=== PATIENT | female | born 1995 | race Two or more races ===

== ENCOUNTER 2017-11-20 19:45 | Inpatient (IN) ==
[2017-11-20] MEDS ORDERED: ONDANSETRON 4 MG/2 ML VIAL IVP ONE (20:15)
[2017-11-20] MEDS ORDERED: MORPHINE SULFATE 4 MG/1 ML IVP ONE ×2 (20:15→21:40)
[2017-11-20] MEDS ORDERED: LORazepam 2 MG/1 ML VIAL IVP ONE (20:17)
[2017-11-20] MEDS: Sodium Chloride 0.9% 1,000 ML PRIMARY IV ONE ×2 (20:25→21:50)
[2017-11-20 20:36] LABS: BASOPHILS # (AUTO) 0.05 10*3/UL; BASOPHILS % (AUTO) 0.2 % (0-1); EOSINOPHILS # (AUTO) 0 10*3/UL; EOSINOPHILS % (AUTO) 0 % (0-8); Hematocrit [HCT] 43.4 % (37.0-47.0); Hemoglobin [HGB] 15.7 g/dL (12.0-16.0); LYMPHOCYTES # (AUTO) 1.38 10*3/uL; MEAN CORPUSCULAR HEMOGLOBIN 31.3 PG (27-31); MEAN CORPUSCULAR HGB CONC 36.2 g/dL (33-37); MEAN CORPUSCULAR VOLUME 86.6 FL (81-99); MEAN PLATELET VOLUME 10.2 FL (7.4-12.2); MONOCYTES # (AUTO) 0.73 10*3/UL (0.3-0.8); MONOCYTES % (AUTO) 3.4 % (5-15); NEUTROPHILS # (AUTO) 19.09 10*3/UL; NEUTROPHILS % (AUTO) 89.5 % (50-80); RED BLOOD COUNT 5.01 10^6/uL (4.20-5.40)
[2017-11-20 20:46] LABS: BLOOD UREA NITROGEN 15 mg/dL (7-22); SERUM ALBUMIN 5.1 g/dL (3.5-4.8)
[2017-11-20 20:48] LABS: VENOUS PH 7.12 (7.32-7.42)
[2017-11-20 21:02] LABS: PLATELET MORPHOLOGY COMMENT NORMAL MORPHOLOGY (NORM); RBC MORPHOLOGY COMMENT NORMAL MORPHOLOGY (NORM); WBC MORPHOLOGY COMMENT SEE COMMENTS (NORM)
[2017-11-20] MEDS ORDERED: DEXTROSE 50%-WATER SYRINGE 50 ML SYRINGE IVP PRN ×3 (21:27→22:16)
[2017-11-20] MEDS ORDERED: Insulin Regular Inj 100 UNIT in Sodium Chloride 0.9% 99 ML IV ONE ×3 (21:27→22:16)
[2017-11-20] MEDS ORDERED: Glucagon Inj Vial 1 MG/ML VIAL IM PRN ×3 (21:27→22:16)
[2017-11-20] MEDS ORDERED: DEXTROSE 31 GM GEL PO PRN ×3 (21:27→22:16)
[2017-11-20] MEDS ORDERED: INSULIN REGULAR, HUMAN 100 UNIT/1 ML - 3 ML IV ONE ×2 (21:36→21:44)
[2017-11-20] MEDS ORDERED: RHO(D) IMMUNE GLOBULIN 1500 UNIT(300 mcg)SYRIN IM PRN (21:45)
[2017-11-20] MEDS ORDERED: Sodium Chloride 0.9% 100 ML IV ONE (22:19)
[2017-11-20] MEDS ORDERED: ONDANSETRON 4 MG/2 ML VIAL IVP PRN (23:29)
[2017-11-20] MEDS ORDERED: Sodium Chloride 0.9% 1,000 ML PRIMARY IV SCH (23:30)
[2017-11-20 23:39] LABS: BILIRUBIN,URINE NEGATIVE (NEG); CLARITY,URINE CLEAR (CLEAR); COLOR,URINE YELLOW (Y); GLUCOSE, URINE (UA) NEGATIVE (NEG); OCCULT BLOOD,URINE SMALL (NEG); PROTEIN,URINE 30 mg/dl (NEG); UROBILINOGEN,URINE 0.2 EU/dL (0.2)
[2017-11-20 23:42] LABS: RBC,URINE 0-1 /hpf; SQUAMOUS EPITHELIAL CELL,UR RARE; URINE SAMPLE TYPE CATH SPECIMEN; URINE SPECIFIC GRAVITY - MAN 1.025
[2017-11-20 23:43] LABS: URINE CRYSTALS FEW
[2017-11-20 23:49] LABS: AMPHETAMINE SCREEN POSITIVE (NEG); CANNABINOID SCREEN,URINE NEGATIVE (NEG); COCAINE SCREEN NEGATIVE (NEG); METHADONE URINE SCREEN POSITIVE (NEG); METHAMPHETAMINES SCREEN,URINE NEGATIVE (NEG); OPIATE SCREEN,URINE POSITIVE (NEG)
--- NOTE | 2017-11-20 23:51 | PDOC ---
General Adult HPI - General Chief Complaint: Abdomen Pain Stated Complaint: vomiting, vaginal bleeding, lower abdominal pain Date Seen by Provider: 11/20/17 Time Seen by Provider: 19:55 Source: POSITIVE: Patient, Other (Boyfriend) Exam Limitations: POSITIVE: No limitations Nurse's Notes Reviewed & Considered: Yes - History of Present Illness Initial Comment: The patient is a 22-year-old female who presents to the emergency room with a chief complaint of nausea and vomiting for the past 12 hours. She furthermore states that she thinks she is around 8 weeks and has had some lower abdominal discomfort and a scant amount of vaginal bleeding tonight. Patient has a history of type I diabetes mellitus diagnosed when she was 13 years old. She is on insulin, 17 units of Lantus daily and NovoLog on a sliding scale. She also has a history of opiate addiction and is being treated for this with methadone. She states that because of her vomiting she's not been able to take her medications. She and her boyfriend lives in [place] and were in [place] attending a concert, and they're on their way back to [place]. Patient states that she had diabetic ketoacidosis this past Apriil. 2 para 0 aborta 1. Patient and her significant other report that she has a history of a large ovarian cyst, which is scheduled for surgical removal later on this month. She states she is also scheduled for surgical termination of her in [place] later on this month. Have you received a tetanus shot in the past 10 years?: Unknown Body Location Affected: REPORTS: Abdomen Timing: REPORTS: Gradual, Getting Worse Duration: <24 hours Severity: Moderate Quality: REPORTS: "Pain" (Lower abdominal pain) Context: REPORTS: Other (As above) Modifying Factors: improves with: Vomiting Similar Symptoms Previously: Yes (with previous episodes of diabetic ketoacidosis) Recent Care Received: REPORTS: Recently Seen (As above) Any Prior Injuries Related to Current Complaint?: No - Patient Allergies Allergies/Adverse Reactions: Allergies 3 Allergy/AdvReac Type Severity Reaction Status Date / Time No Known Allergies Allergy Verified 11/20/17 21:00 Past Medical History - heen HEENT History: Denies History Cardiovascular History: Denies History Respiratory History: Denies History Gastrointestinal History: Denies History Genitourinary History: Denies History Endocrine History: Type 1 Diabetes Musculoskeletal History: Arthritis Prosthesis or Implant: No Neurological History: Denies History Blood Disorders: Denies History Psychiatric History: Denies History History of Sexually Transmitted Diseases: No LMP: 3 months prior Obstetrical History: Other (please comment) Additional Obstetrical History: ELECTIVE 2009 : 2 Para: 0 Cancer History: Denies History In Past Year Been Physically Harmed or Verbally Threatened: No History of MDRO: No History of Other Communicable Diseases: No Tobacco Use: Current Every Day Smoker Type of alcohol normally used: Beer In the Past 12 Months, Have Used or Abuse Any Substance: None Previous Hospitalizations: Yes (diabetic ketoacidosis) Type / Date of Surgery: ADNOIDECTOMY Anesthesia Reactions: No Malignant Hyperthermia: No Family History of Malignant Hyperthermia: No Significant Family History: Cancer Additional Family History: BREAST. COLON. LUNGS Past Medical History Reviewed: Reviewed - No Changes ROS - Limitations ROS Limitations: No Limitations Constitution: REPORTS: Weakness Cardiovascular: REPORTS: Denies Cardiac Symptoms Respiratory: REPORTS: Denies Resp Symptoms Neurological: REPORTS: Denies Neuro Symptoms Gastrointestinal: REPORTS: Abdominal Pain, Nausea, Vomitting Endocrine: REPORTS: Polyuria Musculoskeletal: REPORTS: Denies MS Symptoms Genitourinary: REPORTS: Other (Scant vaginal bleeding today) Eyes: REPORTS: Denies Symptoms ENT: REPORTS: Denies Symptoms Skin: REPORTS: Denies Skin Symptoms Lympathic: REPORTS: Denies Lympathic Symptoms Immunologic: POSITIVE: Denies Symptoms Psychiatric: POSITIVE: Anxiety General Adult Exam - General Appearance General Appearance: POSITIVE: Alert, Cooperative, No Evidence of Trauma, Moderate Distress (Due to nausea, tachypnea, abdominal discomfort). NEGATIVE: No Acute Distress - HEENT HEENT: POSITIVE: Head Inspection Nml, Eyes Inspection Nml, Ears Inspection Nml, Nose Inspection Nml, Oral/Dental Inspect. Nml, Pharynx Inspect. Nml, PERRL, EOMI - Pupils Pupil Size: 3 mm: Bilateral (PERRLA) - Neck Neck: POSITIVE: Normal Inspection, Thyroid Normal - Respiratory Respiratory: POSITIVE: Other (Tachypnea with respiratory rate of around 20/m) - Cardiovascular Cardiovascular: POSITIVE: Regular Rate & Rhythm, No Murmur, No Gallop, PMI Normal, Tachycardia (95/m) Peripheral Pulses: Radial (R): 2+, Radial (L): 2+ - Abdomen Abdomen: Soft: (All Quadrants), Normal Bowel Sounds: (All Quadrants), Denies Tenderness: (RUQ), (LUQ), No Splenomegaly: (All Quadrants), No Hepatomegaly: ( All Quadrants), No Guarding: (All Quadrants), No Rebound: (All Quadrants), No Palpable Pulse: (All Quadrants), No Palpabale Mass: (All Quadrants), No Distention: (All Quadrants), No Rigidity: (All Quadrants), Tenderness Noted: ( RLQ), (LLQ) Additional Abdominal Details: Abdominal examination shows bowel sounds to be active. There is some poorly localized discomfort on direct palpation in the lower abdomen, without masses, organomegaly or rebound. Pelvic examination shows external genitalia to be normal. There is just a little bit of blood in the external os. Os is closed. Uterus is not grossly tender, but is somewhat enlarged. Probable right adnexal mass - Back Back: POSITIVE: Normal Inspection - Skin Skin: POSITIVE: Normal Color, Warm, Dry, No Rash - Extremities Extremity: Non-Tender: (All Extremities), Normal ROM: (All Extremities), Normal Inspection: (All Extremities) - Neurological / Psychological Neurological: POSITIVE: Affect Apporpriate, Oriented X3, executive officer special warfare team Normal As Tested, Motor Normal, Sensation Normal Images - Complete Complete: 1 - Area of described discomfort General Adult Progress - Results Reviewed by me Xrays/CTs/US Reviewed by me: Yes Discussed with Radiologist: Yes Radiology Findings: Obstetrical ultrasound discussed with the electronics instructor. Box Printing Machine Operator reports no heart rate. There is a 9 cm cyst probably arising from the right ovary with probably some hydronephrosis. Abdominal ultrasound negative except as above Lab Results Reviewed by Me: Yes (venous blood gas shows pH 7.12, quantitative test 70,931, blood t) CBC and BMP: 11/20/17 20:25 11/20/17 20:25 - Patient's Progress Pain Medication Addressed: POSITIVE: Yes (Patient medicated with morphine sulfate for her pain) School/Work Release Addressed: POSITIVE: Not Applicable Re-Examine Time: 21:20 Re-Examine Comment: Patient feeling somewhat better after hydration with approximately 1.5 L of normal saline and after insulin bolus 0.1 units per kilogram followed by constant infusion of regular insulin at 0.1 units per kilogram per hour. Re-Examine Time:: 23:10 Re-Examine Comment: Results of ultrasound discussed with patient. Diagnosis of diabetic ketoacidosis and probable demise and large right ovarian cyst discussed with patient and her significant other. Case discussed with Dr. Garcia at 0, who declines to admit the patient because of the obstetrical components to it. He states that he will consult with the assembly repairer with regard to patient's diabetic ketoacidosis. Case discussed with Dr. Alvarez, who was on-call for COMFORT ADVISOR, at 0 who admitted patient with consultation to hospitalist. Patient's blood type is A- and RhoGAM therefore given. Status: POSITIVE: Improved, Re-Examined Antibiotics Given: No - Consult Consult (If Yes, Name of Consulting MD & Time Called): Yes (Dr. Garcia, [id number]; Dr. Alvarez [id number]) Consulting MD will see pt:: POSITIVE: [facility] [place] Counseled: POSITIVE: Patient, Family (Boyfriend), RE: Lab Results, RE: Radiology Results, RE: DX, RE: Need for F/U Patient Care Time - Estimated PCT Patient Care Time (In Minutes): 70 Vital Signs - Recent Vital Signs Vital Signs: Vital Signs (Last 8 hours) Temp Pulse Resp BP Pulse Ox 11/20/17 21:00 92 20 100 11/20/17 19:45 98.0 F 95 20 116/50 100 - VS Reviewed Vital Signs Reviewed: Yes Discharge Clinical Impression: Abdominal pain, Diabetic ketoacidosis, Nausea and vomiting, Discharge Disposition: Admit to Inpatient Condition: Good Follow Up With: NONE,NONE [Primary Care Provider] - Date Decision to Admit to Inpatient: 11/20/17 Time Decision to Admit to Inpatient: 23:00
[2017-11-21] MEDS ORDERED: DEXTROSE 31 GM GEL PO PRN ×3 (00:18→16:46)
[2017-11-21] MEDS ORDERED: ONDANSETRON 4 MG/2 ML VIAL IVP PRN (00:18)
[2017-11-21] MEDS ORDERED: Sodium Chloride 0.9% 1,000 ML PRIMARY IV ONE ×2 (00:18→15:29)
[2017-11-21] MEDS ORDERED: DEXTROSE 50%-WATER SYRINGE 50 ML SYRINGE IVP PRN ×3 (00:18→16:46)
[2017-11-21] MEDS ORDERED: LIDOCAINE W/ SODIUM BICARB 0.5 ML SYR SUBD PRN (00:18)
[2017-11-21] MEDS ORDERED: Sodium Chloride 0.9% 1,000 ML PRIMARY IV SCH (00:18)
[2017-11-21] MEDS ORDERED: Glucagon Inj Vial 1 MG/ML VIAL IM PRN ×3 (00:18→16:46)
[2017-11-21] MEDS ORDERED: Insulin Regular Inj 100 UNIT in Sodium Chloride 0.9% 99 ML IV SCH ×2 (00:18→11:30)
[2017-11-21] MEDS: Insulin Regular Inj 100 UNIT in Sodium Chloride 0.9% 99 ML IV SCH ×2 (00:30→01:39)
--- NOTE | 2017-11-21 00:35 | DI ---
EXAM: US After First Trimester, Transabdominal CLINICAL HISTORY: ITS.REASON vaginal bleeding;; two months Physician Notes: Tech Comments: TECHNIQUE: Real-time transabdominal obstetrical ultrasound of the maternal pelvis and a second or third trimester with image documentation. COMPARISON: No relevant prior studies available. FINDINGS: Single intrauterine gestation with crown-rump length corresponding to a gestational age of 9 weeks 6 days. No heart tones are present. 9 cm right adnexal cyst with dependent debris, consistent with a complicated cyst. No free fluid. IMPRESSION: Large complicated right adnexal cyst. Intrauterine demise. Critical Value [employer] 11/21/17 00:40 Verify Receipt Verified receipt with BEBA Downing on 11/21 00:39 (-06:00)
--- NOTE | 2017-11-21 00:36 | DI ---
EXAM: US Abdomen Complete CLINICAL HISTORY: ITS.REASON abdominal pain Physician Notes: Tech Comments: TECHNIQUE: Real-time ultrasound of the abdomen (complete) with image documentation. COMPARISON: No relevant prior studies available. FINDINGS: Liver: No acute or suspicious findings. No mass. No intrahepatic bile duct dilation. Gallbladder: No acute or suspicious findings. No gallstones. Common bile duct: Unremarkable as visualized. No stones. No dilation. Pancreas: Unremarkable as visualized. Kidneys: Moderate right hydronephrosis without intrarenal stones. Spleen: No acute or suspicious findings. No splenomegaly. Aorta: No acute or suspicious findings. No aneurysm. Inferior vena cava: No acute or suspicious findings. IMPRESSION: Moderate right hydronephrosis without intrarenal stones.
--- NOTE | 2017-11-21 00:44 | PDOC ---
HPI - History of Present Illness Date of Service: 11/21/17 Time of Service: 00:39 Chief Complaint: Nausea and vomiting History of Present Illness: This very pleasant 22-year-old female who resides in [place] who is down here for a concert with her significant other who presented today with nausea and vomiting and abdominal pain. She is actually known to be at 9 weeks . She had an ultrasound done in the emergency room that showed a demise. She was actually on schedule for terminating the with a planned to be done in [place]. She also suffers from type I diabetes and has had that since she was 12 years old. She is on methadone as well in a methadone clinic in [place]. She is on Dexedrine and due to the sedation that methadone can cause at times. Be that as it may, the patient developed nausea and vomiting and abdominal pain and was at a concert in the [facility] and had a couple of beers and was dehydrated and sunburned. She felt bad through the whole day. The patient and her significant other had car problems and her symptoms got bad enough that she decided to stop. For further evaluation. She' s found to be in DKA. She was given fluids, ultrasound was done which showed a demise, she had a pelvic exam done by the emergency room physician and I' m told she had minimal bleeding at the cervical os. She has a known ovarian cyst which apparently was known about in [place] per the patient's history and per her significant other's history. The plan was to do without surgically in about 5 weeks or so. She is currently quite tired, complains of a headache as well, and chills. She has no other infectious symptoms. She has had DKA in the past and felt that she was having the symptoms of it which is why she came in for evaluation. She has artery had the Rhogam shot. Past Medical History Medical History: 1. Diabetes mellitus type I. 2. Recent intrauterine now with no heart tones at about 9 weeks. The patient had plans to terminate the and had apparently had this scheduled in [place]. 3. Known ovarian cyst at about 10 cm. 4. Methadone dependence. 5. Tobacco abuse. 6. History of drug abuse. 7. Within the last 2 months, the patient had what sounds like pyelonephritis with bacteremia but details are not available for review. Surgical History: 1. Prior D&C. 2. Adenoids removed Pertinent Family History: No family history of diabetes. Past Social History: Has a significant other. Lives in [place]. Is on disability there. Tobacco Use: Current Every Day Smoker Do you dip or chew tobacco: No In the Past 12 Months, Have Used or Abuse Any of the Following Substance: Other (please comment) (Patient admitted to me that she shot up her Dexedrine recently in the past week.) Alcohol Use: Occasionally Medication / Allergies Home Medications: Home Medications 3 Medication Instructions Recorded Confirmed Type Dextroamphetamine Sulfate 5 mg PO 11/21/17 History [Dexedrine] Methadone HCl [Methadone Intensol] 10 mg PO 11/21/17 History Allergies/Adverse Reactions: Allergies 3 Allergy/AdvReac Type Severity Reaction Status Date / Time No Known Allergies Allergy Verified 11/20/17 21:00 Review of Systems - Review of Systems All Systems: Reviewed & No Additional Complaints Except as Stated (I did a 12 point review systems and is negative other than that discussed in history present illness and that noted below.) - Constitutional Constitutional: REPORTS: Fever / Chills - Respiratory Respiratory: REPORTS: Negative System Review - Cardiovascular Cardiovascular: REPORTS: Negative System Review - Gastrointestinal Gastrointestinal / Abdominal: REPORTS: Nausea, Vomiting, Abdominal Pain - Gynecological Gynecological: REPORTS: Other (Patient denied any pelvic pain with examination. She had this done in the emergency room. Please see the emergency room physician's notes regarding the pelvic examination. Eyes any bleeding at this time.) - Neurological Neurologic: REPORTS: Headache Exam - Vitals Vital Signs: Vital Signs Temperature 98.0 F Temperature Source Temporal Artery Scan Pulse Rate [Pulse Oximeter 92 Left] Respiratory Rate 20 Blood Pressure [Left Arm] 116/50 Pulse Ox 100 Oxygen Delivery Method Room Air - General General Appearance: No Acute Distress, Cooperative - Head Head Exam: Normal Inspection, Normocephalic, Atraumatic - Eye Eye Exam: POSITIVE: No Scleral Icterus - ENT ENT Exam: POSITIVE: Mucous Membranes Dry - Neck Neck Exam: Normal Inspection, No Tenderness, No Lymphadenopathy, No Thyromegaly , JVP is not Raised - Respiratory Respiratory Exam: POSITIVE: Clear to Auscultation - Bilaterally, Breathing Non Labored, Normal to Percussion and Palpation - Cardiovascular Cardiovascular Exam: POSITIVE: RRR, No Murmur, No Clicks, No Gallops, No Rubs, No JVD - GI/Abdominal GI/Abdominal Exam: POSITIVE: Normal Bowel Sounds, Non Tender, Distended (Mild distention and tympanic to percussion, but normal tones and otherwise nontender to palpation) - Rectal Rectal Exam: POSITIVE: Deferred - External Exam: POSITIVE: Deferred Exam: POSITIVE: Deferred - Extremities Extremities Exam: POSITIVE: No Clubbing Present, No Edema Present, No Cyanosis Present - Back Back Exam: POSITIVE: No CVA Tenderness - Neurological Neurological Exam: POSITIVE: Alert, Oriented x 3, Normal Gait, No Facial Droop, Speech Intact / Clear, Moves All Extremities Equally - Integumentary Integumentary Exam: POSITIVE: Warm, Dry, Intact - Central Line Examination Central Line Present on Admission: No Results - Labs CBC and BMP: 11/20/17 20:25 11/20/17 20:25 Additional Lab Results: Laboratory Results 11/20/17 11/20/17 11/20/17 Range/Units 20:25 20:25 20:25 WBC 21.33 H (4.8-10.8) 10^3/uL RBC 5.01 (4.20-5.40) 10^6/uL Hgb 15.7 (12.0-16.0) g/dL Hct 43.4 (37.0-47.0) % MCV 86.6 (81-99) FL MCH 31.3 H (27-31) PG MCHC 36.2 (33-37) g/dL RDW Std Deviation 37.7 L (39-50) fL RDW Coeff of Denisa 12.1 (11.5-14.5) % Plt Count 377 H (140-350) 10*3/uL MPV 10.2 (7.4-12.2) FL Immature Gran % (Auto) 0.4 (0-5) % Neut % (Auto) 89.5 H (50-80) % Lymph % (Auto) 6.5 L (10-50) % [place] % (Auto) 3.4 L (5-15) % Eos % (Auto) 0 (0-8) % Baso % (Auto) 0.2 (0-1) % Immature Gran # (Auto) 0.08 10*3/UL Neut # (Auto) 19.09 10*3/UL Lymph # (Auto) 1.38 10*3/uL [place] # (Auto) 0.73 (0.3-0.8) 10*3/UL Eos # (Auto) 0 10*3/UL Baso # (Auto) 0.05 10*3/UL WBC Morphology Comment See comments (NORM) Plt Morphology Comment Normal morphology (NORM) RBC Morph Comment Normal morphology (NORM) VBG pH (7.32-7.42) VBG pCO2 (45-55) mmHg VBG HCO3 (22-26) mmol/L VBG Base Excess (-2-2) MMOL/L Sodium 131 L (135-145) meq/L Potassium 5.4 H (3.8-5.2) meq/L Chloride 96 L (98-112) meq/L Carbon Dioxide 7 L (23-33) meq/L Anion Gap 28 H (5-20) BUN 15 (7-22) mg/dL Creatinine 0.6 (0.50-1.20) mg/dL Estimated GFR > 60 (>60 ml/min/1.73m(2)) BUN/Creatinine Ratio 25.00 H (6-20) Glucose 418 H* (78-110) mg/dL Calculated Osmolality 290.0 (267-292) mOsm/kg Lactic Acid 2.2 H (0.70-2.10) MMOL/L Calcium 9.6 (8.7-10.7) mg/dL Magnesium 1.8 (1.6-2.4) mg/dL Total Bilirubin 1.5 H (0.3-1.2) mg/dL AST 30 (8-39) IU/L ALT 37 (9-52) IU/L Alkaline Phosphatase 87 (38-126) IU/L Total Protein 8.4 H (6.1-8.0) g/dL Albumin 5.1 H (3.5-4.8) g/dL Globulin 3.3 (2.50-4.10) g/dL Albumin/Globulin Ratio 1.50 (1.3-2.0) mg/g Serum HCG, Qual HCG, Quant mIU/ML Ur Collection Type Urine Color (Y) Urine Clarity (CLEAR) Urine pH (5.0-8.5) Ur Specific [place] (1.005-1.030) U Specif Grav (Refrac) Urine Protein (NEG) mg/dl Urine Glucose (UA) (NEG) mg/dL Urine Ketones (NEG) Urine Occult Blood (NEG) Urine Nitrate (NEG) Urine Bilirubin (NEG) Urine Urobilinogen (0.2) EU/dL Ur Leukocyte Esterase (NEG) Urine RBC (NONE) /hpf Urine WBC (NONE) Ur Squamous Epith Cells (NONE) Ur Renal Epithelial Cell (NONE) Urine Crystals Urine Bacteria (NONE) Urine Casts (NONE) Urine Mucus (NONE) Urine Trichomonas (NONE) Urine Yeast (NONE) Ur Culture Indicated? Urine Opiates Screen (NEG) Ur Buprenorphine (NEG) Ur Oxycodone Screen (NEG) Urine Methadone Screen (NEG) Ur Propoxyphene Screen (NEG) Barbiturate Screen (NEG) U Tricyclic Antidepress (NEG) Phencyclidine Screen (NEG) Amphetamines Screen (NEG) U Methamphetamines Scrn (NEG) Benzodiazepines Screen (NEG) Cocaine Screen (NEG) U Marijuana (THC) Screen (NEG) Blood Type Antibody Screen 11/20/17 11/20/17 11/20/17 Range/Units 20:25 20:25 20:40 WBC (4.8-10.8) 10^3/uL RBC (4.20-5.40) 10^6/uL Hgb (12.0-16.0) g/dL Hct (37.0-47.0) % MCV (81-99) FL MCH (27-31) PG MCHC (33-37) g/dL RDW Std Deviation (39-50) fL RDW Coeff of Denisa (11.5-14.5) % Plt Count (140-350) 10*3/uL MPV (7.4-12.2) FL Immature Gran % (Auto) (0-5) % Neut % (Auto) (50-80) % Lymph % (Auto) (10-50) % [place] % (Auto) (5-15) % Eos % (Auto) (0-8) % Baso % (Auto) (0-1) % Immature Gran # (Auto) 10*3/UL Neut # (Auto) 10*3/UL Lymph # (Auto) 10*3/uL [place] # (Auto) (0.3-0.8) 10*3/UL Eos # (Auto) 10*3/UL Baso # (Auto) 10*3/UL WBC Morphology Comment (NORM) Plt Morphology Comment (NORM) RBC Morph Comment (NORM) VBG pH 7.12 L (7.32-7.42) VBG pCO2 21 L (45-55) mmHg VBG HCO3 7 L (22-26) mmol/L VBG Base Excess -22 L (-2-2) MMOL/L Sodium (135-145) meq/L Potassium (3.8-5.2) meq/L Chloride (98-112) meq/L Carbon Dioxide (23-33) meq/L Anion Gap (5-20) BUN (7-22) mg/dL Creatinine (0.50-1.20) mg/dL Estimated GFR (>60 ml/min/1.73m(2)) BUN/Creatinine Ratio (6-20) Glucose (78-110) mg/dL Calculated Osmolality (267-292) mOsm/kg Lactic Acid (0.70-2.10) MMOL/L Calcium (8.7-10.7) mg/dL Magnesium (1.6-2.4) mg/dL Total Bilirubin (0.3-1.2) mg/dL AST (8-39) IU/L ALT (9-52) IU/L Alkaline Phosphatase (38-126) IU/L Total Protein (6.1-8.0) g/dL Albumin (3.5-4.8) g/dL Globulin (2.50-4.10) g/dL Albumin/Globulin Ratio (1.3-2.0) mg/g Serum HCG, Qual HCG, Quant 30188 mIU/ML Ur Collection Type Urine Color (Y) Urine Clarity (CLEAR) Urine pH (5.0-8.5) Ur Specific [place] (1.005-1.030) U Specif Grav (Refrac) Urine Protein (NEG) mg/dl Urine Glucose (UA) (NEG) mg/dL Urine Ketones (NEG) Urine Occult Blood (NEG) Urine Nitrate (NEG) Urine Bilirubin (NEG) Urine Urobilinogen (0.2) EU/dL Ur Leukocyte Esterase (NEG) Urine RBC (NONE) /hpf Urine WBC (NONE) Ur Squamous Epith Cells (NONE) Ur Renal Epithelial Cell (NONE) Urine Crystals Urine Bacteria (NONE) Urine Casts (NONE) Urine Mucus (NONE) Urine Trichomonas (NONE) Urine Yeast (NONE) Ur Culture Indicated? Urine Opiates Screen (NEG) Ur Buprenorphine (NEG) Ur Oxycodone Screen (NEG) Urine Methadone Screen (NEG) Ur Propoxyphene Screen (NEG) Barbiturate Screen (NEG) U Tricyclic Antidepress (NEG) Phencyclidine Screen (NEG) Amphetamines Screen (NEG) U Methamphetamines Scrn (NEG) Benzodiazepines Screen (NEG) Cocaine Screen (NEG) U Marijuana (THC) Screen (NEG) Blood Type A NEGATIVE Antibody Screen Negative 11/20/17 11/20/17 Range/Units 21:19 23:42 WBC (4.8-10.8) 10^3/uL RBC (4.20-5.40) 10^6/uL Hgb (12.0-16.0) g/dL Hct (37.0-47.0) % MCV (81-99) FL MCH (27-31) PG MCHC (33-37) g/dL RDW Std Deviation (39-50) fL RDW Coeff of Denisa (11.5-14.5) % Plt Count (140-350) 10*3/uL MPV (7.4-12.2) FL Immature Gran % (Auto) (0-5) % Neut % (Auto) (50-80) % Lymph % (Auto) (10-50) % [place] % (Auto) (5-15) % Eos % (Auto) (0-8) % Baso % (Auto) (0-1) % Immature Gran # (Auto) 10*3/UL Neut # (Auto) 10*3/UL Lymph # (Auto) 10*3/uL [place] # (Auto) (0.3-0.8) 10*3/UL Eos # (Auto) 10*3/UL Baso # (Auto) 10*3/UL WBC Morphology Comment (NORM) Plt Morphology Comment (NORM) RBC Morph Comment (NORM) VBG pH (7.32-7.42) VBG pCO2 (45-55) mmHg VBG HCO3 (22-26) mmol/L VBG Base Excess (-2-2) MMOL/L Sodium (135-145) meq/L Potassium (3.8-5.2) meq/L Chloride (98-112) meq/L Carbon Dioxide (23-33) meq/L Anion Gap (5-20) BUN (7-22) mg/dL Creatinine (0.50-1.20) mg/dL Estimated GFR (>60 ml/min/1.73m(2)) BUN/Creatinine Ratio (6-20) Glucose (78-110) mg/dL Calculated Osmolality (267-292) mOsm/kg Lactic Acid (0.70-2.10) MMOL/L Calcium (8.7-10.7) mg/dL Magnesium (1.6-2.4) mg/dL Total Bilirubin (0.3-1.2) mg/dL AST (8-39) IU/L ALT (9-52) IU/L Alkaline Phosphatase (38-126) IU/L Total Protein (6.1-8.0) g/dL Albumin (3.5-4.8) g/dL Globulin (2.50-4.10) g/dL Albumin/Globulin Ratio (1.3-2.0) mg/g Serum HCG, Qual Positive HCG, Quant mIU/ML Ur Collection Type Cath specimen Urine Color Yellow (Y) Urine Clarity Clear (CLEAR) Urine pH 5.0 (5.0-8.5) Ur Specific [place] 1.025 (1.005-1.030) U Specif Grav (Refrac) 1.025 Urine Protein 30 A (NEG) mg/dl Urine Glucose (UA) Negative (NEG) mg/dL Urine Ketones >=160 (NEG) Urine Occult Blood Small H (NEG) Urine Nitrate Negative (NEG) Urine Bilirubin Negative (NEG) Urine Urobilinogen 0.2 (0.2) EU/dL Ur Leukocyte Esterase Negative (NEG) Urine RBC 0-1 (NONE) /hpf Urine WBC None (NONE) Ur Squamous Epith Cells Rare (NONE) Ur Renal Epithelial Cell None (NONE) Urine Crystals Few Urine Bacteria None (NONE) Urine Casts None (NONE) Urine Mucus None (NONE) Urine Trichomonas None (NONE) Urine Yeast None (NONE) Ur Culture Indicated? Culture not set Urine Opiates Screen Positive H (NEG) Ur Buprenorphine Negative (NEG) Ur Oxycodone Screen Negative (NEG) Urine Methadone Screen Positive H (NEG) Ur Propoxyphene Screen Negative (NEG) Barbiturate Screen Negative (NEG) U Tricyclic Antidepress Negative (NEG) Phencyclidine Screen Negative (NEG) Amphetamines Screen Positive H (NEG) U Methamphetamines Scrn Negative (NEG) Benzodiazepines Screen Negative (NEG) Cocaine Screen Negative (NEG) U Marijuana (THC) Screen Negative (NEG) Blood Type Antibody Screen - Imaging Status: Report Reviewed by Me (I reviewed the abdominal ultrasound results, and also the OB ultrasound results. OB ultrasound results are as follows: FINDINGS: Single intrauterine gestation with crown-rump length corresponding to a gestational age of 9 weeks 6 days. No heart tones are present. 9 cm right adnexal cyst with dependent debris, consistent with a complicated cyst. No free fluid. IMPRESSION: Large complicated right adnexal cyst. Intrauterine demise.) Assessment and Plan - Patient Problems (1) Diabetic ketoacidosis Current Visit: Yes Status: Acute Code(s): E13.10 - Other specified diabetes mellitus with ketoacidosis without coma Qualifiers: Diabetes mellitus type: type 1 Diabetes mellitus complication detail: without coma Qualified Code(s): E10.10 - Type 1 diabetes mellitus with ketoacidosis without coma (2) demise Current Visit: Yes Status: Acute (3) Adnexal cyst Current Visit: Yes Status: Acute Code(s): N94.9 - Unspecified condition associated with female genital organs and menstrual cycle (4) Hydronephrosis, right Current Visit: Yes Status: Acute Code(s): N13.30 - Unspecified hydronephrosis (5) Methadone dependence Current Visit: Yes Status: Acute Code(s): F11.20 - Opioid dependence, uncomplicated (6) Tobacco abuse Current Visit: Yes Status: Acute Code(s): Z72.0 - Tobacco use (7) Hyperkalemia Current Visit: Yes Status: Acute Code(s): E87.5 - Hyperkalemia - Assessment / Plan Additional Assessment/Plan Details: Admit the patient. I spoke with the obstetrics coverage ronald and there was a demise that I did not know about earlier. At this point I think is I can admit the patient , and we will have surgical OB tomorrow see the patient in consultation for possible D&C and also to help address the right adnexal cyst. At about 9 weeks gestational age, I don't know if this will be managed expectantly in terms of a spontaneous processes miscarriage) or whether or not the patient would need a D&C and that's why we will have OB see the patient in the morning. Obstetrics coverage ronald stated they would help me get a hold of OB in the morning. Morphine for pain. Blood sugars already below 250 so we'll switch to D5 normal saline and continue an insulin drip that's a little less aggressive than the DKA weightbase protocol to try and clear ketones. Keep nothing by mouth in case of surgery later today. Antiemetics. Hopefully if things get the DKA and her control and the nausea and vomiting improved we can get the patient started on her home methadone and Dexedrine doses. I discussed the plan above with the patient and her significant other and they agreed.
[2017-11-21] MEDS ORDERED: MORPHINE SULFATE 4 MG/1 ML IVP PRN (00:55)
[2017-11-21] MEDS: D5-NS 1,000 ML PRIMARY IV SCH ×3 (00:55→17:38)
[2017-11-21] MEDS ORDERED: Influenza 17-18 Vaccine (6mo+) Quad 60mcg/0.5ml PF IM ONE (01:18)
[2017-11-21] MEDS: Sodium Chloride 0.9% 1,000 ML PRIMARY IV SCH ×2 (01:26→07:54)
[2017-11-21 01:52] LABS: BLOOD UREA NITROGEN 14 mg/dL (7-22); BUN/CREATININE RATIO 23.33 (6-20)
[2017-11-21 04:43] LABS: VENOUS PH 7.34 (7.32-7.42)
[2017-11-21] MEDS ORDERED: Insulin Glargine SoloStar Inj 100 UNIT/ML INSULN.PEN SUBCUT ONE ×2 (05:36→15:16)
[2017-11-21 06:14] LABS: BLOOD UREA NITROGEN 13 mg/dL (7-22)
[2017-11-21 08:18] LABS: BLOOD UREA NITROGEN 14 mg/dL (7-22); BUN/CREATININE RATIO 23.33 (6-20)
[2017-11-21] MEDS ORDERED: POTASSIUM PHOSHATE IV ONE (08:57)
[2017-11-21] MEDS ORDERED: D5W IV ONE (08:57)
[2017-11-21] MEDS ORDERED: Magnesium Sulfate 2gm (Premix) 2 GM/50 ML BAG IV ONE (08:58)
[2017-11-21] MEDS ORDERED: PANTOPRAZOLE IV 40 MG VIAL IVP SCH (09:00)
--- NOTE | 2017-11-21 09:13 | CONSULT ---
Consult Note - Consult Consult Date: 11/21/17 Reason for Consult: missed AB, right ovarian cyst Requesting Physician: Dr. Hackett Primary Care Provider: NONE NONE - History of Present Illness History of Present Illness: The patient is a 22-year-old LMP type I diabetic who presented to the emergency room late last evening with a complaint of nausea and vomiting which caused some abdominal discomfort. The patient thought that she had diabetic ketoacidosis since she had had that before. The patient had been in [place], [place] at [facility] for a concert and was drinking alcohol. After the concert, they drove up and had car problems in [place], [place]. The patient was not feeling well with nausea and vomiting at that time. After their car was fixed, the patient and her significant other continue to drive [place] because the patient lives in [place]. When they got to [place], [place] the patient was feeling very bad with significant nausea and vomiting and believed that she needed to go to the hospital for DKA. The patient states that her nausea and vomiting started first and then she had some abdominal discomfort with the emesis. The patient states that she did not start having abdominal pain and then nausea and vomiting. The patient presented to the emergency room at [facility] late last evening and was found to be in DKA. Additional significant [employer] issues are that the patient was found to be in September 2017 and then she had a repeat ultrasound in late October 2017 and an elective termination scheduled for 11/25/2017 in [place]. The patient was not informed whether or not there was a heartbeat at the ultrasound in late October 2017. The patient was also informed that she had a 10 cm right ovarian cyst that was not causing the patient pain and the patient states that she is scheduled for surgery in the fall of 2017 if the cyst is still present. The patient states that she has been doing well without abdominal pain until last night when she had significant nausea and vomiting and then had some abdominal discomfort from her multiple emesis. The patient did have an ultrasound which confirmed an intrauterine with NO cardiac activity measuring 9-6 /7 weeks. Additionally, a 9 cm simple cyst of the right ovary with some debris. There was good blood flow to the right ovary and left ovary. Other significant medical issues are that the patient has a history of narcotic use and currently is being prescribed methadone and amphetamines in lieu of the narcotic use. The amphetamines or prescribed because of methadone causes the patient drowsiness. Past medical history significant for type I diabetes since age 12. No thyroid disorder, no asthma, no hypertension. Past surgical history significant for a D&C 1 for an elective AB and adenoid surgery No known drug allergies Positive tobacco one pack per day, positive alcohol and patient was drinking significantly over the past couple days when she went to the concert. EDGE BANDER HAND history with menarche age 9 or 10, the patient has had a Pap smear and it has been normal. No sexually transmitted infection history. The patient's menses are irregular. OB history with 1 elective AB with D&C in the past and her current which is either a missed AB or a demise. Family history of breast cancer and colon cancer. No ovarian cancer, cervical cancer, endometrial cancer at the patient is aware of. Past Medical History Medical History: 1. Diabetes mellitus type I. 2. Recent intrauterine now with no heart tones at about 9 weeks. The patient had plans to terminate the and had apparently had this scheduled in [place]. 3. Known ovarian cyst at about 10 cm. 4. Methadone dependence. 5. Tobacco abuse. 6. History of drug abuse. 7. Within the last 2 months, the patient had what sounds like pyelonephritis with bacteremia but details are not available for review. Surgical History: 1. Prior D&C. 2. Adenoids removed Pertinent Family History: No family history of diabetes. Past Social History: Has a significant other. Lives in [place]. Is on disability there. Tobacco Use: Current Every Day Smoker Do you dip or chew tobacco: No In the Past 12 Months, Have Used or Abuse Any of the Following Substance: Other (please comment) (Patient admitted to me that she shot up her Dexedrine recently in the past week.) Alcohol Use: Occasionally Medication / Allergies Home Medications: Home Medications 3 Medication Instructions Recorded Confirmed Type Dextroamphetamine Sulfate 5 mg PO DAILY 11/21/17 11/21/17 History [Dexedrine] Methadone HCl [Methadone Intensol] 10 mg PO DAILY 11/21/17 11/21/17 History Allergies/Adverse Reactions: Allergies 3 Allergy/AdvReac Type Severity Reaction Status Date / Time No Known Allergies Allergy Verified 11/20/17 21:00 Exam - Vitals Vital Signs: Vital Signs Temperature 99.1 F Temperature Source Temporal Artery Scan Pulse Rate [Pulse Oximeter 95 Left] Pulse Rate 99 Respiratory Rate 18 Blood Pressure [Left Arm] 99/53 Blood Pressure 99/50 Pulse Ox 98 Oxygen Delivery Method Room Air Height 5 ft 4 in Weight 137 lb - General General Appearance: No Acute Distress, Cooperative (The patient is tired from being up all night after the admission and having DKA. Also her blood sugar was 47 at one time during the interview. Currently it is 140+. The patient fell asleep several times during my history and exam. A EDGE BANDER HAND exam was not completed at this time secondary to the patient being in the ICU and not having a EDGE BANDER HAND exam bed there but also the fact that the patient is very tired and just needs to rest currently.) - Head Head Exam: Normal Inspection - Eye Eye Exam: POSITIVE: Normal Appearance - Neck Neck Exam: Normal Inspection, Full ROM - Respiratory Respiratory Exam: POSITIVE: Clear to Auscultation - Bilaterally, Breathing Non Labored - Cardiovascular Cardiovascular Exam: POSITIVE: RRR - GI/Abdominal GI/Abdominal Exam: POSITIVE: Normal Bowel Sounds, Non Tender, Soft (No guarding or rebound. Nontender to palpation.) - Rectal Rectal Exam: POSITIVE: Deferred - External Exam: POSITIVE: Deferred (Currently deferred since the patient is in the ICU. The patient did have a EDGE BANDER HAND exam by the emergency room physician last night. The patient did get up to go to the restroom and had no vaginal bleeding. ) - Extremities Extremities Exam: POSITIVE: Normal Inspection, Full ROM - Back Back Exam: POSITIVE: Normal Inspection, Full ROM - Neurological Neurological Exam: POSITIVE: Alert, Oriented x 3 - Psychiatric Psychiatric Exam: POSITIVE: Normal Mood, Flat Affect - Integumentary Integumentary Exam: POSITIVE: Normal Color - Central Line Examination Central Line Present on Admission: No Results - Labs CBC and BMP: 11/21/17 07:45 11/21/17 07:45 Assessment and Plan - Assessment / Plan Additional Assessment/Plan Details: Assessment/Plan: 22-year-old with a missed AB or a demise with type I diabetes who was admitted for DKA. The patient also has a 9 cm simple right ovarian cyst that has been present for several weeks. From my history, the patient had an ultrasound sometime at the end of October-the patient is not sure the exact date-that showed an intrauterine which I am assuming had positive heart tones since the patient was scheduled for an elective termination with D&C on 11/25/2017. The patient now has a Demise with no cardiac activity last night with the crown-rump measurement of 9-6/7 weeks. The patient states that she was "2 months" when she had her ultrasound at the end of October 2017. When the patient presented late last evening to the emergency room, her main complaints were nausea and vomiting which led to some abdominal discomfort. This specific history is important since the patient has a 9 cm ovarian cyst which could allow for ovarian torsion and therefore abdominal pain and then nausea and vomiting. However, the patient states that she developed significant nausea and then emesis and then some abdominal discomfort secondary to the emesis. By my abdominal exam today and by the ultrasound last evening which showed good blood flow to the right ovary, I do not believe that the patient has ovarian torsion. Although, the patient is at risk for an ovarian torsion secondary to having a 9 cm simple cyst. The patient is currently being followed by her physicians in [place] for the ovarian cyst. The patient states that she has a surgery scheduled for the fall if it does not go away or resolve. The patient also had some vaginal spotting and the patient did have a EDGE BANDER HAND exam by the emergency room physician last night which showed the cervical OS to be closed and no active bleeding. The patient is Rh- with a negative antibody screen and the patient did receive RhoGAM in the emergency room last night. With the patient having a demise with the demise occurring probably within the last several days since she was told that she was "2 months" or perhaps 8 weeks towards the end of October 2017 when she had her ultrasound and the demise is measuring 9-6/7 weeks by crown-rump length late last night or early this morning, the demise may have just taken place recently. With the patient having minimal bleeding and no cramping, the patient was given her options of having a D&C, using Cytotec to cause a miscarriage or expectant management to allow for a miscarriage. The patient and I discussed this as well as Dr. Hackett and the patient discussed this and currently the patient would like to wait until she gets back home to [place] to have her D&C which is scheduled for 11/25/2017. I did discuss with the patient that she does not need to have a D&C currently but if she would like a D&C, that could be arranged. The current plan is to continue the patient's drips in the ICU and to allow the patient to eat today. I will see the patient later today to determine how she is doing. If the patient is not doing well from a EDGE BANDER HAND perspective or bleeding more and having significant cramping, I would offer the patient a D&C with Cytotec cervical ripening this evening and early in the morning and nothing by mouth after midnight with continued IV fluids and insulin as needed or the D&C would be sooner if necessary. I would consent the patient for a suction D&C but also I would consent the patient for a possible laparoscopy secondary to the patient's 9 cm simple ovarian cyst. I would consent the patient for a right ovarian cystectomy and cyst aspiration versus a possible right move for oophorectomy. Currently, I do not believe that the patient needs a laparoscopy for her 9 cm simple cyst, but if the patient elects to have a D&C, I would just want the patient consented in case there was a reason that I needed to do a laparoscopy such as that the patient awakes from her general endotracheal anesthesia and significant pain and perhaps the pain etiology may be an ovarian torsion after the suction D&C. Also, there is always a risk of uterine perforation with a D&C and if the perforation were to occur, a laparoscopy would be consented for and I would offer the patient the cystectomy and possible oophorectomy at that time. Of note, the patient's white count was 21,000 but now has decreased to 12,000 with the last blood draw. I discuss this only to mention that if the patient did have a demise and a uterine infection beginning, I would not suspect that the patient's white count would decrease to 12,000 over 8 hours. However, I do not believe the patient has a septic AB currently. Most likely the elevated white count was secondary to the patient's DKA and her symptoms at that time. I mentioned in my exam that the patient was tired and sleepy. I do not believe that the patient is toxic. I believe that the patient was exhausted from having significant nausea and emesis and then a diagnosis of DKA and being in the emergency room last night and not sleeping well in the ICU overnight. Additionally, the patient does have a history of narcotic abuse and is currently on methadone and an amphetamine and the patient may be sleepy secondary to that as well. If the patient does wake up more later in the day, a EDGE BANDER HAND exam could be completed that time pending the patient's permission. I will continue to follow this patient with the hospitalist.
[2017-11-21 10:03] LABS: BASOPHILS # (AUTO) 0.01 10*3/UL; BASOPHILS % (AUTO) 0.1 % (0-1); EOSINOPHILS # (AUTO) 0.01 10*3/UL; EOSINOPHILS % (AUTO) 0.1 % (0-8); Hematocrit [HCT] 32.3 % (37.0-47.0); Hemoglobin [HGB] 11.7 g/dL (12.0-16.0); LYMPHOCYTES # (AUTO) 1.15 10*3/uL; MEAN CORPUSCULAR HEMOGLOBIN 31.5 PG (27-31); MEAN CORPUSCULAR HGB CONC 36.2 g/dL (33-37); MEAN CORPUSCULAR VOLUME 87.1 FL (81-99); MONOCYTES % (AUTO) 1.7 % (5-15); NEUTROPHILS # (AUTO) 10.57 10*3/UL; NEUTROPHILS % (AUTO) 88.2 % (50-80); RED BLOOD COUNT 3.71 10^6/uL (4.20-5.40)
[2017-11-21 10:08] LABS: PLATELET MORPHOLOGY COMMENT NORMAL MORPHOLOGY (NORM); RBC MORPHOLOGY COMMENT NORMAL MORPHOLOGY (NORM); WBC MORPHOLOGY COMMENT NORMAL MORPHOLOGY (NORM)
[2017-11-21] MEDS ORDERED: Sodium Chloride 0.9% 100 ML IV ONE (10:43)
[2017-11-21 12:34] LABS: BLOOD UREA NITROGEN 11 mg/dL (7-22)
[2017-11-21 14:05] VITALS: RESP 18; O2SAT 100
[2017-11-21] MEDS ORDERED: Potassium Phoshate Inj 30 MMOL in D5W 500 ML IV ONE (14:15)
[2017-11-21] MEDS ORDERED: DEXTROAMPHETAMINE 10 MG PO ONE (15:15)
[2017-11-21] MEDS ORDERED: Insulin Sliding Scale Protocol SUBCUT PRN (16:46)
[2017-11-21 16:57] LABS: BLOOD UREA NITROGEN 10 mg/dL (7-22); BUN/CREATININE RATIO 16.66 (6-20)
--- NOTE | 2017-11-21 17:58 | DCSUMMARY ---
Hospitalization Summary Admit Date: 11/20/2017 Discharge Date: 11/21/17 Primary Diagnosis:: diabetic ketoacidosis, resolved Secondary Diagnosis:: demise, intrauterine. Hospital Course: This is a 22-year-old female who resides in [place] who was down in [place], [place], for concert with her significant other. She was admitted in the setting of nausea, vomiting, abdominal pain, and diabetic ketoacidosis. She is on chronic methadone therapy as well as Dexedrine therapy. The patient recovered fairly quickly from her DKA, and is actually out of DKA and was able to be transferred out of the ICU and can be transferred home. Her anion gap closed. Her ketones are small in the urine. She is resuming her Lantus and short acting insulin regimen. The patient was also noted to have positive test. We did consult obstetrics. An ultrasound and pelvic examination done in the emergency room were consistent with demise, intrauterine, with no heart tones noted. The patient had actually opted for an elective that was scheduled to take place on 11/25/2017 in [place]. Given this, the patient was presented with several options including proceeding with a D&C here, managing this expectantly, or considering Cytotec. Her cervical os was closed and she really did not have any bleeding while here. She had no evidence of infection. Given her options, risks and benefits of the options, the patient opted to continue expectant management of this demise until her appointment on 05/2018 in [place]. At that time she may opt for a D&C. That will be between her physicians in [place] and her. Given resolution of her diabetic ketoacidosis, a plan for her demise, the only other issue was to develop a plan for her ovarian cyst. There was no evidence of ovarian torsion. This was a cyst that was known and she has plans for surgical intervention in the fall of 2017 with her [place] physicians should that ovarian cyst persist. Patient denies any abdominal pain, nausea or vomiting through the day. They have all resolved. 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 Given the improvement and resolution in her diabetic ketoacidosis, closure of the anion gap acidosis, tolerance of food today, and inability to titrate off of the drip and go back to her normal insulins, I think this would be reasonable to do. I greatly appreciate their consultative efforts of Dr. Camarillo. Assessment and Plan: 1. As per discharge assessments noted 2. Disposition: Patient is discharged home 3. Condition on discharge, stable and improved. 4. Diet: regular diet 5. Activities: resume normal activities, but advised to not drink or smoke again. 6. Follow-Up: 1. follow with your doctors in [place]. 7. Medications at the Time of Discharge: Home Medications 1) resume home methadone at home doses and [place]. This is liquid and was confirmed with pharmacy today. 2. Resume home Lantus 3. Resume fast acting insulin as prescribed and [place]. 4. Resume Dexedrine as prescribed. I advised the patient to take these as prescribed and not to shoot them up. 8. Time, care, counseling and coordination of care for this discharge is greater than 30 minutes. Exam - Vitals Vital Signs: Vital Signs Temperature 97.0 F Temperature Source Temporal Artery Scan Pulse Rate [Telemetry] 96 Pulse Rate [Pulse Oximeter 89 Left] Pulse Rate 89 Respiratory Rate 18 Blood Pressure [Left Arm] 101/49 Blood Pressure 99/50 Pulse Ox 100 Oxygen Delivery Method Room Air Height 5 ft 4 in Weight 137 lb - General General Appearance: No Acute Distress, Cooperative - Head Head Exam: Atraumatic - Eye Eye Exam: POSITIVE: No Scleral Icterus - ENT ENT Exam: POSITIVE: Mucous Membranes Moist - Respiratory Respiratory Exam: POSITIVE: Clear to Auscultation - Bilaterally, Breathing Non Labored - Cardiovascular Cardiovascular Exam: POSITIVE: RRR, No Murmur, No Clicks, No Gallops, No Rubs, No JVD - GI/Abdominal GI/Abdominal Exam: POSITIVE: Normal Bowel Sounds, Non Tender, Non Distended, Soft - Extremities Extremities Exam: POSITIVE: No Clubbing Present, No Edema Present, No Cyanosis Present - Neurological Neurological Exam: POSITIVE: Alert, Oriented x 3, Normal Gait, No Facial Droop, Speech Intact / Clear, Moves All Extremities Equally Data Peritnent Studies: Laboratory Results 11/20/17 11/20/17 11/20/17 Range/Units 20:25 20:25 20:25 WBC 21.33 H (4.8-10.8) 10^3/uL RBC 5.01 (4.20-5.40) 10^6/uL Hgb 15.7 (12.0-16.0) g/dL Hct 43.4 (37.0-47.0) % MCV 86.6 (81-99) FL MCH 31.3 H (27-31) PG MCHC 36.2 (33-37) g/dL RDW Std Deviation 37.7 L (39-50) fL RDW Coeff of Denisa 12.1 (11.5-14.5) % Plt Count 377 H (140-350) 10*3/uL MPV 10.2 (7.4-12.2) FL Immature Gran % (Auto) 0.4 (0-5) % Neut % (Auto) 89.5 H (50-80) % Lymph % (Auto) 6.5 L (10-50) % [place] % (Auto) 3.4 L (5-15) % Eos % (Auto) 0 (0-8) % Baso % (Auto) 0.2 (0-1) % Immature Gran # (Auto) 0.08 10*3/UL Neut # (Auto) 19.09 10*3/UL Lymph # (Auto) 1.38 10*3/uL [place] # (Auto) 0.73 (0.3-0.8) 10*3/UL Eos # (Auto) 0 10*3/UL Baso # (Auto) 0.05 10*3/UL WBC Morphology Comment See comments (NORM) Plt Morphology Comment Normal morphology (NORM) RBC Morph Comment Normal morphology (NORM) VBG pH (7.32-7.42) VBG pCO2 (45-55) mmHg VBG HCO3 (22-26) mmol/L VBG Base Excess (-2-2) MMOL/L Sodium 131 L (135-145) meq/L Potassium 5.4 H (3.8-5.2) meq/L Chloride 96 L (98-112) meq/L Carbon Dioxide 7 L (23-33) meq/L Anion Gap 28 H (5-20) BUN 15 (7-22) mg/dL Creatinine 0.6 (0.50-1.20) mg/dL Estimated GFR > 60 (>60 ml/min/1.73m(2)) BUN/Creatinine Ratio 25.00 H (6-20) Glucose 418 H* (78-110) mg/dL Calculated Osmolality 290.0 (267-292) mOsm/kg Lactic Acid 2.2 H (0.70-2.10) MMOL/L Calcium 9.6 (8.7-10.7) mg/dL Phosphorus (2.4-4.3) mg/dl Magnesium 1.8 (1.6-2.4) mg/dL Total Bilirubin 1.5 H (0.3-1.2) mg/dL AST 30 (8-39) IU/L ALT 37 (9-52) IU/L Alkaline Phosphatase 87 (38-126) IU/L Total Protein 8.4 H (6.1-8.0) g/dL Albumin 5.1 H (3.5-4.8) g/dL Globulin 3.3 (2.50-4.10) g/dL Albumin/Globulin Ratio 1.50 (1.3-2.0) mg/g Serum HCG, Qual HCG, Quant mIU/ML Ur Collection Type Urine Color (Y) Urine Clarity (CLEAR) Urine pH (5.0-8.5) Ur Specific [place] (1.005-1.030) U Specif Grav (Refrac) Urine Protein (NEG) mg/dl Urine Glucose (UA) (NEG) mg/dL Urine Ketones (NEG) Urine Occult Blood (NEG) Urine Nitrate (NEG) Urine Bilirubin (NEG) Urine Acetone Urine Urobilinogen (0.2) EU/dL Ur Leukocyte Esterase (NEG) Urine RBC (NONE) /hpf Urine WBC (NONE) Ur Squamous Epith Cells (NONE) Ur Renal Epithelial Cell (NONE) Urine Crystals Urine Bacteria (NONE) Urine Casts (NONE) Urine Mucus (NONE) Urine Trichomonas (NONE) Urine Yeast (NONE) Ur Culture Indicated? Urine Opiates Screen (NEG) Ur Buprenorphine (NEG) Ur Oxycodone Screen (NEG) Urine Methadone Screen (NEG) Ur Propoxyphene Screen (NEG) Barbiturate Screen (NEG) U Tricyclic Antidepress (NEG) Phencyclidine Screen (NEG) Amphetamines Screen (NEG) U Methamphetamines Scrn (NEG) Benzodiazepines Screen (NEG) Cocaine Screen (NEG) U Marijuana (THC) Screen (NEG) Acetone Level (NEGATIVE) Blood Type Antibody Screen 11/20/17 11/20/17 11/20/17 Range/Units 20:25 20:25 20:40 WBC (4.8-10.8) 10^3/uL RBC (4.20-5.40) 10^6/uL Hgb (12.0-16.0) g/dL Hct (37.0-47.0) % MCV (81-99) FL MCH (27-31) PG MCHC (33-37) g/dL RDW Std Deviation (39-50) fL RDW Coeff of Denisa (11.5-14.5) % Plt Count (140-350) 10*3/uL MPV (7.4-12.2) FL Immature Gran % (Auto) (0-5) % Neut % (Auto) (50-80) % Lymph % (Auto) (10-50) % [place] % (Auto) (5-15) % Eos % (Auto) (0-8) % Baso % (Auto) (0-1) % Immature Gran # (Auto) 10*3/UL Neut # (Auto) 10*3/UL Lymph # (Auto) 10*3/uL [place] # (Auto) (0.3-0.8) 10*3/UL Eos # (Auto) 10*3/UL Baso # (Auto) 10*3/UL WBC Morphology Comment (NORM) Plt Morphology Comment (NORM) RBC Morph Comment (NORM) VBG pH 7.12 L (7.32-7.42) VBG pCO2 21 L (45-55) mmHg VBG HCO3 7 L (22-26) mmol/L VBG Base Excess -22 L (-2-2) MMOL/L Sodium (135-145) meq/L Potassium (3.8-5.2) meq/L Chloride (98-112) meq/L Carbon Dioxide (23-33) meq/L Anion Gap (5-20) BUN (7-22) mg/dL Creatinine (0.50-1.20) mg/dL Estimated GFR (>60 ml/min/1.73m(2)) BUN/Creatinine Ratio (6-20) Glucose (78-110) mg/dL Calculated Osmolality (267-292) mOsm/kg Lactic Acid (0.70-2.10) MMOL/L Calcium (8.7-10.7) mg/dL Phosphorus (2.4-4.3) mg/dl Magnesium (1.6-2.4) mg/dL Total Bilirubin (0.3-1.2) mg/dL AST (8-39) IU/L ALT (9-52) IU/L Alkaline Phosphatase (38-126) IU/L Total Protein (6.1-8.0) g/dL Albumin (3.5-4.8) g/dL Globulin (2.50-4.10) g/dL Albumin/Globulin Ratio (1.3-2.0) mg/g Serum HCG, Qual HCG, Quant 34550 mIU/ML Ur Collection Type Urine Color (Y) Urine Clarity (CLEAR) Urine pH (5.0-8.5) Ur Specific [place] (1.005-1.030) U Specif Grav (Refrac) Urine Protein (NEG) mg/dl Urine Glucose (UA) (NEG) mg/dL Urine Ketones (NEG) Urine Occult Blood (NEG) Urine Nitrate (NEG) Urine Bilirubin (NEG) Urine Acetone Urine Urobilinogen (0.2) EU/dL Ur Leukocyte Esterase (NEG) Urine RBC (NONE) /hpf Urine WBC (NONE) Ur Squamous Epith Cells (NONE) Ur Renal Epithelial Cell (NONE) Urine Crystals Urine Bacteria (NONE) Urine Casts (NONE) Urine Mucus (NONE) Urine Trichomonas (NONE) Urine Yeast (NONE) Ur Culture Indicated? Urine Opiates Screen (NEG) Ur Buprenorphine (NEG) Ur Oxycodone Screen (NEG) Urine Methadone Screen (NEG) Ur Propoxyphene Screen (NEG) Barbiturate Screen (NEG) U Tricyclic Antidepress (NEG) Phencyclidine Screen (NEG) Amphetamines Screen (NEG) U Methamphetamines Scrn (NEG) Benzodiazepines Screen (NEG) Cocaine Screen (NEG) U Marijuana (THC) Screen (NEG) Acetone Level (NEGATIVE) Blood Type A NEGATIVE Antibody Screen Negative 11/20/17 11/20/17 11/21/17 Range/Units 21:19 23:42 00:45 WBC (4.8-10.8) 10^3/uL RBC (4.20-5.40) 10^6/uL Hgb (12.0-16.0) g/dL Hct (37.0-47.0) % MCV (81-99) FL MCH (27-31) PG MCHC (33-37) g/dL RDW Std Deviation (39-50) fL RDW Coeff of Denisa (11.5-14.5) % Plt Count (140-350) 10*3/uL MPV (7.4-12.2) FL Immature Gran % (Auto) (0-5) % Neut % (Auto) (50-80) % Lymph % (Auto) (10-50) % [place] % (Auto) (5-15) % Eos % (Auto) (0-8) % Baso % (Auto) (0-1) % Immature Gran # (Auto) 10*3/UL Neut # (Auto) 10*3/UL Lymph # (Auto) 10*3/uL [place] # (Auto) (0.3-0.8) 10*3/UL Eos # (Auto) 10*3/UL Baso # (Auto) 10*3/UL WBC Morphology Comment (NORM) Plt Morphology Comment (NORM) RBC Morph Comment (NORM) VBG pH (7.32-7.42) VBG pCO2 (45-55) mmHg VBG HCO3 (22-26) mmol/L VBG Base Excess (-2-2) MMOL/L Sodium 136 (135-145) meq/L Potassium 5.0 (3.8-5.2) meq/L Chloride 109 (98-112) meq/L Carbon Dioxide 7 L (23-33) meq/L Anion Gap 20 (5-20) BUN 14 (7-22) mg/dL Creatinine 0.6 (0.50-1.20) mg/dL Estimated GFR > 60 (>60 ml/min/1.73m(2)) BUN/Creatinine Ratio 23.33 H (6-20) Glucose 144 H (78-110) mg/dL Calculated Osmolality 285.0 (267-292) mOsm/kg Lactic Acid (0.70-2.10) MMOL/L Calcium 8.2 L (8.7-10.7) mg/dL Phosphorus (2.4-4.3) mg/dl Magnesium (1.6-2.4) mg/dL Total Bilirubin (0.3-1.2) mg/dL AST (8-39) IU/L ALT (9-52) IU/L Alkaline Phosphatase (38-126) IU/L Total Protein (6.1-8.0) g/dL Albumin (3.5-4.8) g/dL Globulin (2.50-4.10) g/dL Albumin/Globulin Ratio (1.3-2.0) mg/g Serum HCG, Qual Positive HCG, Quant mIU/ML Ur Collection Type Cath specimen Urine Color Yellow (Y) Urine Clarity Clear (CLEAR) Urine pH 5.0 (5.0-8.5) Ur Specific [place] 1.025 (1.005-1.030) U Specif Grav (Refrac) 1.025 Urine Protein 30 A (NEG) mg/dl Urine Glucose (UA) Negative (NEG) mg/dL Urine Ketones >=160 (NEG) Urine Occult Blood Small H (NEG) Urine Nitrate Negative (NEG) Urine Bilirubin Negative (NEG) Urine Acetone Urine Urobilinogen 0.2 (0.2) EU/dL Ur Leukocyte Esterase Negative (NEG) Urine RBC 0-1 (NONE) /hpf Urine WBC None (NONE) Ur Squamous Epith Cells Rare (NONE) Ur Renal Epithelial Cell None (NONE) Urine Crystals Few Urine Bacteria None (NONE) Urine Casts None (NONE) Urine Mucus None (NONE) Urine Trichomonas None (NONE) Urine Yeast None (NONE) Ur Culture Indicated? Culture not set Urine Opiates Screen Positive H (NEG) Ur Buprenorphine Negative (NEG) Ur Oxycodone Screen Negative (NEG) Urine Methadone Screen Positive H (NEG) Ur Propoxyphene Screen Negative (NEG) Barbiturate Screen Negative (NEG) U Tricyclic Antidepress Negative (NEG) Phencyclidine Screen Negative (NEG) Amphetamines Screen Positive H (NEG) U Methamphetamines Scrn Negative (NEG) Benzodiazepines Screen Negative (NEG) Cocaine Screen Negative (NEG) U Marijuana (THC) Screen Negative (NEG) Acetone Level (NEGATIVE) Blood Type Antibody Screen 11/21/17 11/21/17 11/21/17 Range/Units 00:45 00:45 04:30 WBC (4.8-10.8) 10^3/uL RBC (4.20-5.40) 10^6/uL Hgb (12.0-16.0) g/dL Hct (37.0-47.0) % MCV (81-99) FL MCH (27-31) PG MCHC (33-37) g/dL RDW Std Deviation (39-50) fL RDW Coeff of Denisa (11.5-14.5) % Plt Count (140-350) 10*3/uL MPV (7.4-12.2) FL Immature Gran % (Auto) (0-5) % Neut % (Auto) (50-80) % Lymph % (Auto) (10-50) % [place] % (Auto) (5-15) % Eos % (Auto) (0-8) % Baso % (Auto) (0-1) % Immature Gran # (Auto) 10*3/UL Neut # (Auto) 10*3/UL Lymph # (Auto) 10*3/uL [place] # (Auto) (0.3-0.8) 10*3/UL Eos # (Auto) 10*3/UL Baso # (Auto) 10*3/UL WBC Morphology Comment (NORM) Plt Morphology Comment (NORM) RBC Morph Comment (NORM) VBG pH (7.32-7.42) VBG pCO2 (45-55) mmHg VBG HCO3 (22-26) mmol/L VBG Base Excess (-2-2) MMOL/L Sodium 137 (135-145) meq/L Potassium 3.6 L D (3.8-5.2) meq/L Chloride 117 H (98-112) meq/L Carbon Dioxide 13 L (23-33) meq/L Anion Gap 7 (5-20) BUN 13 (7-22) mg/dL Creatinine 0.5 (0.50-1.20) mg/dL Estimated GFR > 60 (>60 ml/min/1.73m(2)) BUN/Creatinine Ratio 26.00 H (6-20) Glucose 86 (78-110) mg/dL Calculated Osmolality 282.0 (267-292) mOsm/kg Lactic Acid 1.7 (0.70-2.10) MMOL/L Calcium 8.2 L (8.7-10.7) mg/dL Phosphorus 2.2 L (2.4-4.3) mg/dl Magnesium 1.7 (1.6-2.4) mg/dL Total Bilirubin (0.3-1.2) mg/dL AST (8-39) IU/L ALT (9-52) IU/L Alkaline Phosphatase (38-126) IU/L Total Protein (6.1-8.0) g/dL Albumin (3.5-4.8) g/dL Globulin (2.50-4.10) g/dL Albumin/Globulin Ratio (1.3-2.0) mg/g Serum HCG, Qual HCG, Quant mIU/ML Ur Collection Type Urine Color (Y) Urine Clarity (CLEAR) Urine pH (5.0-8.5) Ur Specific [place] (1.005-1.030) U Specif Grav (Refrac) Urine Protein (NEG) mg/dl Urine Glucose (UA) (NEG) mg/dL Urine Ketones (NEG) Urine Occult Blood (NEG) Urine Nitrate (NEG) Urine Bilirubin (NEG) Urine Acetone Urine Urobilinogen (0.2) EU/dL Ur Leukocyte Esterase (NEG) Urine RBC (NONE) /hpf Urine WBC (NONE) Ur Squamous Epith Cells (NONE) Ur Renal Epithelial Cell (NONE) Urine Crystals Urine Bacteria (NONE) Urine Casts (NONE) Urine Mucus (NONE) Urine Trichomonas (NONE) Urine Yeast (NONE) Ur Culture Indicated? Urine Opiates Screen (NEG) Ur Buprenorphine (NEG) Ur Oxycodone Screen (NEG) Urine Methadone Screen (NEG) Ur Propoxyphene Screen (NEG) Barbiturate Screen (NEG) U Tricyclic Antidepress (NEG) Phencyclidine Screen (NEG) Amphetamines Screen (NEG) U Methamphetamines Scrn (NEG) Benzodiazepines Screen (NEG) Cocaine Screen (NEG) U Marijuana (THC) Screen (NEG) Acetone Level (NEGATIVE) Blood Type Antibody Screen 11/21/17 11/21/17 11/21/17 Range/Units 04:30 04:30 04:30 WBC (4.8-10.8) 10^3/uL RBC (4.20-5.40) 10^6/uL Hgb (12.0-16.0) g/dL Hct (37.0-47.0) % MCV (81-99) FL MCH (27-31) PG MCHC (33-37) g/dL RDW Std Deviation (39-50) fL RDW Coeff of Denisa (11.5-14.5) % Plt Count (140-350) 10*3/uL MPV (7.4-12.2) FL Immature Gran % (Auto) (0-5) % Neut % (Auto) (50-80) % Lymph % (Auto) (10-50) % [place] % (Auto) (5-15) % Eos % (Auto) (0-8) % Baso % (Auto) (0-1) % Immature Gran # (Auto) 10*3/UL Neut # (Auto) 10*3/UL Lymph # (Auto) 10*3/uL [place] # (Auto) (0.3-0.8) 10*3/UL Eos # (Auto) 10*3/UL Baso # (Auto) 10*3/UL WBC Morphology Comment (NORM) Plt Morphology Comment (NORM) RBC Morph Comment (NORM) VBG pH 7.34 (7.32-7.42) VBG pCO2 23 L (45-55) mmHg VBG HCO3 12 L (22-26) mmol/L VBG Base Excess -14 L (-2-2) MMOL/L Sodium (135-145) meq/L Potassium (3.8-5.2) meq/L Chloride (98-112) meq/L Carbon Dioxide (23-33) meq/L Anion Gap (5-20) BUN (7-22) mg/dL Creatinine (0.50-1.20) mg/dL Estimated GFR (>60 ml/min/1.73m(2)) BUN/Creatinine Ratio (6-20) Glucose (78-110) mg/dL Calculated Osmolality (267-292) mOsm/kg Lactic Acid (0.70-2.10) MMOL/L Calcium (8.7-10.7) mg/dL Phosphorus 1.1 L (2.4-4.3) mg/dl Magnesium 1.7 (1.6-2.4) mg/dL Total Bilirubin (0.3-1.2) mg/dL AST (8-39) IU/L ALT (9-52) IU/L Alkaline Phosphatase (38-126) IU/L Total Protein (6.1-8.0) g/dL Albumin (3.5-4.8) g/dL Globulin (2.50-4.10) g/dL Albumin/Globulin Ratio (1.3-2.0) mg/g Serum HCG, Qual HCG, Quant mIU/ML Ur Collection Type Urine Color (Y) Urine Clarity (CLEAR) Urine pH (5.0-8.5) Ur Specific [place] (1.005-1.030) U Specif Grav (Refrac) Urine Protein (NEG) mg/dl Urine Glucose (UA) (NEG) mg/dL Urine Ketones (NEG) Urine Occult Blood (NEG) Urine Nitrate (NEG) Urine Bilirubin (NEG) Urine Acetone Moderate Urine Urobilinogen (0.2) EU/dL Ur Leukocyte Esterase (NEG) Urine RBC (NONE) /hpf Urine WBC (NONE) Ur Squamous Epith Cells (NONE) Ur Renal Epithelial Cell (NONE) Urine Crystals Urine Bacteria (NONE) Urine Casts (NONE) Urine Mucus (NONE) Urine Trichomonas (NONE) Urine Yeast (NONE) Ur Culture Indicated? Urine Opiates Screen (NEG) Ur Buprenorphine (NEG) Ur Oxycodone Screen (NEG) Urine Methadone Screen (NEG) Ur Propoxyphene Screen (NEG) Barbiturate Screen (NEG) U Tricyclic Antidepress (NEG) Phencyclidine Screen (NEG) Amphetamines Screen (NEG) U Methamphetamines Scrn (NEG) Benzodiazepines Screen (NEG) Cocaine Screen (NEG) U Marijuana (THC) Screen (NEG) Acetone Level Moderate (NEGATIVE) Blood Type Antibody Screen 11/21/17 11/21/17 11/21/17 Range/Units 07:45 07:45 07:45 WBC 11.98 H (4.8-10.8) 10^3/uL RBC 3.71 L (4.20-5.40) 10^6/uL Hgb 11.7 L (12.0-16.0) g/dL Hct 32.3 L (37.0-47.0) % MCV 87.1 (81-99) FL MCH 31.5 H (27-31) PG MCHC 36.2 (33-37) g/dL RDW Std Deviation 36.7 L (39-50) fL RDW Coeff of Denisa 11.9 (11.5-14.5) % Plt Count 272 (140-350) 10*3/uL MPV 10.0 (7.4-12.2) FL Immature Gran % (Auto) 0.3 (0-5) % Neut % (Auto) 88.2 H (50-80) % Lymph % (Auto) 9.6 L (10-50) % [place] % (Auto) 1.7 L (5-15) % Eos % (Auto) 0.1 (0-8) % Baso % (Auto) 0.1 (0-1) % Immature Gran # (Auto) 0.04 10*3/UL Neut # (Auto) 10.57 10*3/UL Lymph # (Auto) 1.15 10*3/uL [place] # (Auto) 0.20 L (0.3-0.8) 10*3/UL Eos # (Auto) 0.01 10*3/UL Baso # (Auto) 0.01 10*3/UL WBC Morphology Comment Normal morphology (NORM) Plt Morphology Comment Normal morphology (NORM) RBC Morph Comment Normal morphology (NORM) VBG pH (7.32-7.42) VBG pCO2 (45-55) mmHg VBG HCO3 (22-26) mmol/L VBG Base Excess (-2-2) MMOL/L Sodium 137 (135-145) meq/L Potassium 3.4 L (3.8-5.2) meq/L Chloride 112 (98-112) meq/L Carbon Dioxide 13 L (23-33) meq/L Anion Gap 12 (5-20) BUN 14 (7-22) mg/dL Creatinine 0.6 (0.50-1.20) mg/dL Estimated GFR > 60 (>60 ml/min/1.73m(2)) BUN/Creatinine Ratio 23.33 H (6-20) Glucose 119 H (78-110) mg/dL Calculated Osmolality 285.0 (267-292) mOsm/kg Lactic Acid (0.70-2.10) MMOL/L Calcium 8.2 L (8.7-10.7) mg/dL Phosphorus 1.6 L (2.4-4.3) mg/dl Magnesium 1.7 (1.6-2.4) mg/dL Total Bilirubin (0.3-1.2) mg/dL AST (8-39) IU/L ALT (9-52) IU/L Alkaline Phosphatase (38-126) IU/L Total Protein (6.1-8.0) g/dL Albumin (3.5-4.8) g/dL Globulin (2.50-4.10) g/dL Albumin/Globulin Ratio (1.3-2.0) mg/g Serum HCG, Qual HCG, Quant mIU/ML Ur Collection Type Urine Color (Y) Urine Clarity (CLEAR) Urine pH (5.0-8.5) Ur Specific [place] (1.005-1.030) U Specif Grav (Refrac) Urine Protein (NEG) mg/dl Urine Glucose (UA) (NEG) mg/dL Urine Ketones (NEG) Urine Occult Blood (NEG) Urine Nitrate (NEG) Urine Bilirubin (NEG) Urine Acetone Urine Urobilinogen (0.2) EU/dL Ur Leukocyte Esterase (NEG) Urine RBC (NONE) /hpf Urine WBC (NONE) Ur Squamous Epith Cells (NONE) Ur Renal Epithelial Cell (NONE) Urine Crystals Urine Bacteria (NONE) Urine Casts (NONE) Urine Mucus (NONE) Urine Trichomonas (NONE) Urine Yeast (NONE) Ur Culture Indicated? Urine Opiates Screen (NEG) Ur Buprenorphine (NEG) Ur Oxycodone Screen (NEG) Urine Methadone Screen (NEG) Ur Propoxyphene Screen (NEG) Barbiturate Screen (NEG) U Tricyclic Antidepress (NEG) Phencyclidine Screen (NEG) Amphetamines Screen (NEG) U Methamphetamines Scrn (NEG) Benzodiazepines Screen (NEG) Cocaine Screen (NEG) U Marijuana (THC) Screen (NEG) Acetone Level (NEGATIVE) Blood Type Antibody Screen 11/21/17 11/21/17 11/21/17 Range/Units 11:14 12:18 12:18 WBC (4.8-10.8) 10^3/uL RBC (4.20-5.40) 10^6/uL Hgb (12.0-16.0) g/dL Hct (37.0-47.0) % MCV (81-99) FL MCH (27-31) PG MCHC (33-37) g/dL RDW Std Deviation (39-50) fL RDW Coeff of Denisa (11.5-14.5) % Plt Count (140-350) 10*3/uL MPV (7.4-12.2) FL Immature Gran % (Auto) (0-5) % Neut % (Auto) (50-80) % Lymph % (Auto) (10-50) % [place] % (Auto) (5-15) % Eos % (Auto) (0-8) % Baso % (Auto) (0-1) % Immature Gran # (Auto) 10*3/UL Neut # (Auto) 10*3/UL Lymph # (Auto) 10*3/uL [place] # (Auto) (0.3-0.8) 10*3/UL Eos # (Auto) 10*3/UL Baso # (Auto) 10*3/UL WBC Morphology Comment (NORM) Plt Morphology Comment (NORM) RBC Morph Comment (NORM) VBG pH (7.32-7.42) VBG pCO2 (45-55) mmHg VBG HCO3 (22-26) mmol/L VBG Base Excess (-2-2) MMOL/L Sodium 135 (135-145) meq/L Potassium 3.8 (3.8-5.2) meq/L Chloride 110 (98-112) meq/L Carbon Dioxide 14 L (23-33) meq/L Anion Gap 11 (5-20) BUN 11 (7-22) mg/dL Creatinine 0.5 (0.50-1.20) mg/dL Estimated GFR > 60 (>60 ml/min/1.73m(2)) BUN/Creatinine Ratio 22.00 H (6-20) Glucose 66 L (78-110) mg/dL Calculated Osmolality 276.0 (267-292) mOsm/kg Lactic Acid (0.70-2.10) MMOL/L Calcium 8.0 L (8.7-10.7) mg/dL Phosphorus 1.5 L (2.4-4.3) mg/dl Magnesium 2.3 (1.6-2.4) mg/dL Total Bilirubin (0.3-1.2) mg/dL AST (8-39) IU/L ALT (9-52) IU/L Alkaline Phosphatase (38-126) IU/L Total Protein (6.1-8.0) g/dL Albumin (3.5-4.8) g/dL Globulin (2.50-4.10) g/dL Albumin/Globulin Ratio (1.3-2.0) mg/g Serum HCG, Qual HCG, Quant mIU/ML Ur Collection Type Urine Color (Y) Urine Clarity (CLEAR) Urine pH (5.0-8.5) Ur Specific [place] (1.005-1.030) U Specif Grav (Refrac) Urine Protein (NEG) mg/dl Urine Glucose (UA) (NEG) mg/dL Urine Ketones (NEG) Urine Occult Blood (NEG) Urine Nitrate (NEG) Urine Bilirubin (NEG) Urine Acetone Large Urine Urobilinogen (0.2) EU/dL Ur Leukocyte Esterase (NEG) Urine RBC (NONE) /hpf Urine WBC (NONE) Ur Squamous Epith Cells (NONE) Ur Renal Epithelial Cell (NONE) Urine Crystals Urine Bacteria (NONE) Urine Casts (NONE) Urine Mucus (NONE) Urine Trichomonas (NONE) Urine Yeast (NONE) Ur Culture Indicated? Urine Opiates Screen (NEG) Ur Buprenorphine (NEG) Ur Oxycodone Screen (NEG) Urine Methadone Screen (NEG) Ur Propoxyphene Screen (NEG) Barbiturate Screen (NEG) U Tricyclic Antidepress (NEG) Phencyclidine Screen (NEG) Amphetamines Screen (NEG) U Methamphetamines Scrn (NEG) Benzodiazepines Screen (NEG) Cocaine Screen (NEG) U Marijuana (THC) Screen (NEG) Acetone Level (NEGATIVE) Blood Type Antibody Screen 11/21/17 11/21/17 11/21/17 Range/Units 15:19 16:18 16:20 WBC (4.8-10.8) 10^3/uL RBC (4.20-5.40) 10^6/uL Hgb (12.0-16.0) g/dL Hct (37.0-47.0) % MCV (81-99) FL MCH (27-31) PG MCHC (33-37) g/dL RDW Std Deviation (39-50) fL RDW Coeff of Denisa (11.5-14.5) % Plt Count (140-350) 10*3/uL MPV (7.4-12.2) FL Immature Gran % (Auto) (0-5) % Neut % (Auto) (50-80) % Lymph % (Auto) (10-50) % [place] % (Auto) (5-15) % Eos % (Auto) (0-8) % Baso % (Auto) (0-1) % Immature Gran # (Auto) 10*3/UL Neut # (Auto) 10*3/UL Lymph # (Auto) 10*3/uL [place] # (Auto) (0.3-0.8) 10*3/UL Eos # (Auto) 10*3/UL Baso # (Auto) 10*3/UL WBC Morphology Comment (NORM) Plt Morphology Comment (NORM) RBC Morph Comment (NORM) VBG pH (7.32-7.42) VBG pCO2 (45-55) mmHg VBG HCO3 (22-26) mmol/L VBG Base Excess (-2-2) MMOL/L Sodium 133 L (135-145) meq/L Potassium 4.0 (3.8-5.2) meq/L Chloride 106 (98-112) meq/L Carbon Dioxide 17 L (23-33) meq/L Anion Gap 10 (5-20) BUN 10 (7-22) mg/dL Creatinine 0.6 (0.50-1.20) mg/dL Estimated GFR > 60 (>60 ml/min/1.73m(2)) BUN/Creatinine Ratio 16.66 (6-20) Glucose 130 H (78-110) mg/dL Calculated Osmolality 276.0 (267-292) mOsm/kg Lactic Acid (0.70-2.10) MMOL/L Calcium 7.7 L (8.7-10.7) mg/dL Phosphorus 3.8 (2.4-4.3) mg/dl Magnesium 1.9 (1.6-2.4) mg/dL Total Bilirubin (0.3-1.2) mg/dL AST (8-39) IU/L ALT (9-52) IU/L Alkaline Phosphatase (38-126) IU/L Total Protein (6.1-8.0) g/dL Albumin (3.5-4.8) g/dL Globulin (2.50-4.10) g/dL Albumin/Globulin Ratio (1.3-2.0) mg/g Serum HCG, Qual HCG, Quant mIU/ML Ur Collection Type Urine Color (Y) Urine Clarity (CLEAR) Urine pH (5.0-8.5) Ur Specific [place] (1.005-1.030) U Specif Grav (Refrac) Urine Protein (NEG) mg/dl Urine Glucose (UA) (NEG) mg/dL Urine Ketones (NEG) Urine Occult Blood (NEG) Urine Nitrate (NEG) Urine Bilirubin (NEG) Urine Acetone Small Urine Urobilinogen (0.2) EU/dL Ur Leukocyte Esterase (NEG) Urine RBC (NONE) /hpf Urine WBC (NONE) Ur Squamous Epith Cells (NONE) Ur Renal Epithelial Cell (NONE) Urine Crystals Urine Bacteria (NONE) Urine Casts (NONE) Urine Mucus (NONE) Urine Trichomonas (NONE) Urine Yeast (NONE) Ur Culture Indicated? Urine Opiates Screen (NEG) Ur Buprenorphine (NEG) Ur Oxycodone Screen (NEG) Urine Methadone Screen (NEG) Ur Propoxyphene Screen (NEG) Barbiturate Screen (NEG) U Tricyclic Antidepress (NEG) Phencyclidine Screen (NEG) Amphetamines Screen (NEG) U Methamphetamines Scrn (NEG) Benzodiazepines Screen (NEG) Cocaine Screen (NEG) U Marijuana (THC) Screen (NEG) Acetone Level (NEGATIVE) Blood Type Antibody Screen Patient Problems - Patient Problem List (1) Diabetic ketoacidosis Current Visit: Yes Status: Resolved Code(s): E13.10 - Other specified diabetes mellitus with ketoacidosis without coma Qualifiers: Diabetes mellitus type: type 1 Diabetes mellitus complication detail: without coma Qualified Code(s): E10.10 - Type 1 diabetes mellitus with ketoacidosis without coma Category: Medical (2) demise Current Visit: Yes Status: Acute Category: Medical (3) Adnexal cyst Current Visit: Yes Status: Chronic Code(s): N94.9 - Unspecified condition associated with female genital organs and menstrual cycle Category: Medical (4) Hydronephrosis, right Current Visit: Yes Status: Acute Comment: Patient had had recent pyelonephritis and I think it may have been on the side. Also it's difficult to know if this could be a result of or the uterine cyst. Either way , it does not appear to be an acute issue and there was no evidence of renal obstruction. I will defer to her [place] physicians Code(s): N13.30 - Unspecified hydronephrosis Category: Medical (5) Methadone dependence Current Visit: Yes Status: Acute Code(s): F11.20 - Opioid dependence, uncomplicated Category: Medical (6) Tobacco abuse Current Visit: Yes Status: Acute Code(s): Z72.0 - Tobacco use Category: Medical (7) Hyperkalemia Current Visit: Yes Status: Acute Code(s): E87.5 - Hyperkalemia Category: Medical
[2017-11-21 18:04] VITALS: BP 99/54; TEMP 96.9
--- NOTE | 2017-11-21 18:34 | PDOC(PROG) ---
Assesstment / Plan Assessment / Plan: I went to see the patient this afternoon and the patient's DKA symptoms had improved greatly and her labs had also improved. Therefore Dr. Hackett discharge the patient. I spoke with the patient and her significant other. The patient had eaten 2 males and was feeling much better. The patient did not have abdominal pain. She did not have vaginal bleeding or cramping currently. The patient and her significant other were going to drive home to [place] and I suggested that on Friday she contact the physician that is going to do surgery on her on Friday to inform them that she had had a demise. The patient was also given precautions for ovarian torsion secondary to the 9 cm simple cyst that the patient has had for several weeks and was diagnosed initially in [place]. The patient expressed understanding. The patient stated she was feeling much better and wanting to drive home to [place]. The patient was discharged home.
[2017-11-21] MEDS ORDERED: METHADONE PO SCH ×2 (21:00)
[2017-11-21] MEDS ORDERED: Insulin Lispro Flexpen 300 UNIT/3 ML INSULN.PEN SUBCUT SCH (21:00)
[2017-11-21] MEDS ORDERED: DEXTROAMPHETAMINE 10 MG PO SCH ×2 (21:00)
[2017-11-22] MEDS ORDERED: PANTOPRAZOLE IV 40 MG VIAL IVP SCH (09:00)
[2017-11-22] MEDS ORDERED: DEXTROAMPHETAMINE 10 MG PO SCH ×2 (09:00)
[2017-11-22] MEDS ORDERED: METHADONE PO SCH ×2 (09:00)
== END 2017-11-21 18:00 | disposition home or self-care (01) | DRG 638 ==
LOC: ER 19:45 → ICU 11-21 00:03 → MED/SURG 11-21 17:37
PROVIDERS: ADMIT Family Medicine; ATTEND Family Medicine